=== PATIENT | female | born 1985 | race Caucasian/White ===

== ENCOUNTER 2018-11-04 16:49 | Emergency (ER) | payer SELFPAY ==
--- NOTE | 2018-11-04 16:57 | PDOC ---
Rapid Medical Evaluation Time Seen by Provider: 11/04/18 16:54 Medical Evaluation: 11/04/18 16:54 CC: left wrist pain s/p FOOSH PE: swelling and ecchymosis to dorsum of left wrist. Increased pain with suppination of wrist. Orders: xrays Patient to proceed to ED for evaluation. Discharge Disposition - Diagnosis Left wrist injury - Referrals - Patient Instructions - Post Discharge Activity
[2018-11-04] MEDS ORDERED: ACETAMINOPHEN 500 MG TABLET (FP) PO ONE (16:58)
[2018-11-04 17:08] VITALS: BP 129/80; PULSE 84; TEMP 98.5; BMI 62.4
--- NOTE | 2018-11-04 17:45 | PDOC ---
History of Present Illness - General Chief Complaint: Injury Stated Complaint: INJURED ARM Time Seen by Provider: 11/04/18 16:54 - History of Present Illness Initial Comments: 11/04/18 17:41 33 y/o F presents for evaluation of L wrist pain after a fall 8 days ago. 2 months post Past History - Past Medical History Allergies/Adverse Reactions: Allergies Allergy/AdvReac Type Severity Reaction Status Date / Time No Known Drug Allergies Allergy Verified 11/04/18 16:57 - Psycho Social/Smoking Cessation Hx Smoking History: Never smoked Have you smoked in the past 12 months: No Information on smoking cessation initiated: No Hx Alcohol Use: No Drug/Substance Use Hx: No Review of Systems - Review of Systems Musculoskeletal: Yes: Joint Pain *Physical Exam - Vital Signs Last Vital Signs Temp Pulse Resp BP Pulse Ox 98.5 F 84 18 129/80 98 11/04/18 16:58 11/04/18 16:58 11/04/18 16:58 11/04/18 16:58 11/04/18 16:58 - Physical Exam Comments: 11/04/18 17:42 L wrist swelling, tenderness about the distal radius, NVID Medical Decision Making - Medical Decision Making 11/04/18 17:42 L distal radius fracture. Sugar tong splint applied NVID post splint application f/u with ortho Discharge - Discharge Information Problems reviewed: Yes Clinical Impression/Diagnosis: Left wrist injury, Fracture of left distal radius Condition: Stable Disposition: HOME - Admission No - Follow up/Referral Referrals: Otf Alejandro DO [Staff Physician] - - Patient Discharge Instructions Additional Instructions: Please keep the splint intact, clean and dry, Tylenol only as directed for pain. Return to the emergency room should symptoms worsen. Without fail, please follow up with orthopedic surgery in 1-2 days. - Post Discharge Activity
[2018-11-04] MEDS ORDERED: ACETAMINOPHEN 500 MG TABLET (FP) ONE (17:48)
== END 2018-11-04 17:59 | disposition home or self-care (01) ==
LOC: JER 16:49 → JERFT 16:49
PROC: 2W3DX1Z Immobilization of Left Lower Arm using Splint (ICD-10-PCS; principal; 2018-11-04)
DX: S52.591A Other fractures of lower end of right radius, initial encounter for closed fracture (principal); W18.39XA Other fall on same level, initial encounter; Y93.89 Activity, other specified; Y92.89 Other specified places as the place of occurrence of the external cause; Y99.8 Other external cause status
CPT/HCPCS: 73110-TC-LT-FY; 73130-TC-LT-FY; 99281-25

== ENCOUNTER 2021-05-07 17:53 | Observation (INO) | payer SELFPAY ==
[2021-05-07 18:51] VITALS: BMI 30.2
[2021-05-07] MEDS ORDERED: ACETAMINOPHEN 325 MG TABLET (FP) PO ONE (20:00)
[2021-05-07] MEDS ORDERED: ACETAMINOPHEN 325 MG TABLET (FP) ONE (20:10)
[2021-05-07 20:36] LABS: RBC 4.19 M/mm3 (3.60-5.2); WHITE BLOOD COUNT 8.6 K/mm3 (4.0-10.0)
[2021-05-07 20:37] LABS: BASO % 0.8 % (0-2.0); HEMATOCRIT 36.1 % (32.4-45.2); HEMOGLOBIN 12.1 GM/dL (10.7-15.3); LYMPH % 20.2 % (8-40); MCH 28.8 pg (25.7-33.7); MCHC 33.5 g/dl (32.0-36.0); MEAN CELL VOLUME 86.2 fl (80-96); MONO % 4.9 % (3.8-10.2); NEUT % 73.1 % (42.8-82.8); PLATELET COUNT 393 10^3/uL (134-434); RDW 13.7 % (11.6-15.6)
[2021-05-07 21:04] LABS: ALBUMIN 3.8 g/dl (3.4-5.0); CALCIUM 8.9 mg/dL (8.5-10.1)
[2021-05-07 21:07] LABS: CREATININE 0.6 mg/dL (0.55-1.3)
[2021-05-07 21:09] LABS: BILIRUBIN,TOTAL 0.4 mg/dL (0.2-1); TOT PROT 7.5 g/dl (6.4-8.2)
[2021-05-08] MEDS ORDERED: NITROGLYCERIN SUBLINGUAL 1/150 0.4 MG TAB SL ONE (01:12)
[2021-05-08] MEDS ORDERED: ENOXAPARIN NA (PORCINE) 40 MG/0.4 ML DISP.SYRIN SQ ONE ×2 (01:21→10:49)
[2021-05-08 08:07] LABS: BASO % 0.5 % (0-2.0); EOS % 2.4 % (0-4.5); HEMATOCRIT 35.4 % (32.4-45.2); HEMOGLOBIN 11.7 GM/dL (10.7-15.3); LYMPH % 39.1 % (8-40); MCH 28.8 pg (25.7-33.7); MEAN CELL VOLUME 87.2 fl (80-96); MEAN PLT VOLUME 7.3 fl (7.5-11.1); MONO % 6.5 % (3.8-10.2); NEUT % 51.5 % (42.8-82.8); PLATELET COUNT 379 10^3/uL (134-434); RBC 4.06 M/mm3 (3.60-5.2); RDW 13.9 % (11.6-15.6); WHITE BLOOD COUNT 5.7 K/mm3 (4.0-10.0)
[2021-05-08 08:17] LABS: IRON SERUM 83 ug/dL (50-175)
[2021-05-08 08:18] LABS: CALCIUM 8.6 mg/dL (8.5-10.1); TOTAL IRON BINDING CAPACITY 400 ug/dL (250-450)
[2021-05-08 08:19] LABS: ALBUMIN 3.6 g/dl (3.4-5.0); BLOOD UREA NITROGEN 8.8 mg/dL (7-18); MAGNESIUM 2.5 mg/dL (1.8-2.4)
[2021-05-08 08:21] LABS: TOT PROT 7.2 g/dl (6.4-8.2)
[2021-05-08 08:22] LABS: CREATININE 0.6 mg/dL (0.55-1.3); INR 1.12 (0.83-1.09); PROTHROMBIN TIME (PATIENT) 12.9 SEC (9.7-13.0)
[2021-05-08 08:23] LABS: BILIRUBIN,TOTAL 0.7 mg/dL (0.2-1)
[2021-05-08] MEDS ORDERED: ASPIRIN 81 MG CHEWABLE TABLETS ONE (10:49)
[2021-05-08] MEDS: ASPIRIN 81 MG CHEWABLE TABLETS PO SCH (10:56)
[2021-05-08] MEDS: ENOXAPARIN NA (PORCINE) 40 MG/0.4 ML DISP.SYRIN SQ SCH (10:56)
[2021-05-08] MEDS ORDERED: ACETAMINOPHEN 325 MG TABLET (FP) PO PRN (11:53)
[2021-05-08] MEDS ORDERED: ACETAMINOPHEN 325 MG TABLET (FP) ONE (12:48)
[2021-05-09] MEDS ORDERED: ONDANSETRON 4 MG TABLET PO ONE (08:21)
[2021-05-09] MEDS ORDERED: ENOXAPARIN NA (PORCINE) 40 MG/0.4 ML DISP.SYRIN SQ ONE (08:30)
[2021-05-09] MEDS ORDERED: ONDANSETRON *ODT* 4 MG TABLET ONE (08:30)
[2021-05-09] MEDS ORDERED: ASPIRIN 81 MG CHEWABLE TABLETS ONE (08:30)
[2021-05-09] MEDS: ENOXAPARIN NA (PORCINE) 40 MG/0.4 ML DISP.SYRIN SQ SCH (09:21)
[2021-05-09] MEDS: ASPIRIN 81 MG CHEWABLE TABLETS PO SCH (09:21)
[2021-05-09 16:08] VITALS: BP 99/54; PULSE 83; TEMP 98.1
== END 2021-05-09 15:15 | disposition home or self-care (01) ==
LOC: JER 17:53 → JERBED 23:51
PROVIDERS: ADMIT Hospitalist; ATTEND Internal Medicine
CPT/HCPCS: 36415; 71046-TC-FY; 80053; 80061; 82962; 83036; 83540; 83550; 83735; 84100; 84443; 84484; 85025; 85610; 87177; 87205; 87209; 87324; 87449; 93005; 93010; 93017; 93018; 93306-TC; 99285-25; C9803-CS; G0378; U0003; U0005